=== PATIENT | female | born 1995 | race Caucasian/White ===

== ENCOUNTER 2021-06-05 22:01 | Emergency (ER) | payer MEDICAID, OTHER ==
[~2021-06-05] VITALS: Ht 165.1 cm; Wt 81.6 kg
[2021-06-05 22:03] VITALS: BP 135/85
== END 2021-06-05 23:33 | disposition left against medical advice (07) ==
LOC: ER 22:04
DX: R10.9 Unspecified abdominal pain (principal); Z53.21 Procedure and treatment not carried out due to patient leaving prior to being seen by health care provider

== ENCOUNTER 2021-08-21 14:11 | Emergency (ER) | payer OTHER ==
[~2021-08-21] VITALS: Ht 167.6 cm; Wt 91.6 kg
[2021-08-21 17:42] VITALS: BP 128/75
== END 2021-08-21 17:43 | disposition home or self-care (01) ==
LOC: ER 14:11
DX: S00.03XA Contusion of scalp, initial encounter (principal); R51.9 Headache, unspecified; W22.8XXA Striking against or struck by other objects, initial encounter; Y93.89 Activity, other specified; Y92.89 Other specified places as the place of occurrence of the external cause; Y99.8 Other external cause status
CPT/HCPCS: 70450

== ENCOUNTER 2021-09-12 19:51 | Emergency (ER) | payer OTHER ==
[~2021-09-12] VITALS: Ht 165.1 cm; Wt 95.3 kg
[2021-09-12 19:52] VITALS: BP 132/82
== END 2021-09-12 23:37 | disposition home or self-care (01) ==
LOC: ER 19:52
DX: J02.9 Acute pharyngitis, unspecified (principal); H92.02 Otalgia, left ear

== ENCOUNTER 2022-01-02 09:14 | Emergency (ER) | payer OTHER ==
[~2022-01-02] VITALS: Ht 167.6 cm; Wt 90.7 kg
[2022-01-02] MEDS ORDERED: FLUO0.024 EX (09:47)
[2022-01-02 09:53] VITALS: BP 128/74
== END 2022-01-02 10:03 | disposition home or self-care (01) ==
LOC: ER 09:14
DX: L20.9 Atopic dermatitis, unspecified (principal); Z79.899 Other long term (current) drug therapy

== ENCOUNTER 2022-02-16 14:52 | Emergency (ER) | payer OTHER ==
[~2022-02-16] VITALS: Ht 165.1 cm; Wt 90.7 kg
[~2022-02-16 14:52] MED LIST: FLUO0.024 EX
[2022-02-16 15:18] VITALS: BP 128/79
[2022-02-16] MEDS ORDERED: METH4PAK PO (15:34)
[2022-02-16] MEDS ORDERED: TRIA0.02 TOP (15:34)
[2022-02-16] MEDS ORDERED: METR1GEL TOP (15:43)
== END 2022-02-16 15:49 | disposition home or self-care (01) ==
LOC: ER 14:52
DX: L71.0 Perioral dermatitis (principal); Z79.899 Other long term (current) drug therapy

== ENCOUNTER 2022-04-12 19:56 | Emergency (ER) | payer OTHER ==
[~2022-04-12] VITALS: Ht 165.1 cm; Wt 96.2 kg
[~2022-04-12 19:56] MED LIST changes: +METH4PAK PO; +METR1GEL TOP
[2022-04-13 01:01] VITALS: BP 119/72
== END 2022-04-13 03:16 | disposition home or self-care (01) ==
LOC: ER 19:56
DX: B34.9 Viral infection, unspecified (principal); Z79.899 Other long term (current) drug therapy